=== PATIENT | male | born 1965 | race Caucasian/White ===

== ENCOUNTER 2020-09-21 18:19 | Emergency (ER) | payer OTHER ==
[2020-09-21] MEDS ORDERED: Metoclopramide 10 MG/2 ML SDV IVPUSH ONE (19:05)
[2020-09-21] MEDS ORDERED: HYDROmorphone 0.5 MG/0.5 ML Syringe IVPUSH ONE ×3 (19:05→23:17)
[2020-09-21] MEDS ORDERED: Sodium Chloride 0.9% 10 ML Syringe FLUSH ONE (19:16)
--- NOTE | 2020-09-21 19:18 | EDM.PDOC ---
ED HPI GENERAL MEDICAL PROBLEM - General Chief Complaint: Gastrointestinal Problem Stated Complaint: MED[facility] Time Seen by Provider: 09/21/20 19:05 Source of Information: Reports: Patient, EMS. Denies: Old Records, RN History Limitations: Reports: No Limitations - History of Present Illness INITIAL COMMENTS - FREE TEXT/NARRATIVE: 55 yo single male presents via EMS from his new home in [place] for SOB with recurrent vomiting for over a week. Has had chills, but is not aware of fever. Has surgery at the [facility] in the [facility] 3 weeks ago for a bleeding ulcer. Has had blood in his stools lately, but not in his emesis. Had a recent DVT and was on anticoagulants for that. Not able to keep any of his meds down for at least a week. Lives alone. Was living in the [facility] until recently. Has L sided abdominal pain worse with deep breathing. Is normally not on oxygen at home. Onset: Gradual Onset Date: 09/14/20 Duration: Day(s): (7+), Getting Worse Location: Reports: Chest, Abdomen Quality: Reports: Sharp Severity: Moderate Improves with: Reports: Rest (and shallow breathing) Worsens with: Reports: Breathing (deep) Context: Reports: Other (See HPI) Associated Symptoms: Reports: Chest Pain, Fever/Chills (no fever documented), Nausea/Vomiting, Shortness of Breath. 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) left sided chest Pain Score (Numeric/FACES): 8 left arm Pain Score (Numeric/FACES): 5 left upper abd Pain Score (Numeric/FACES): 9 - Related Data Allergies Allergy/AdvReac Type Severity Reaction Status Date / Time No Known Allergies Allergy Verified 09/21/20 18:27 Home Meds: Home Meds Divalproex Sodium [Depakote] 4 tab PO BEDTIME 09/21/20 [History] Pregabalin [Lyrica] 150 mg PO BID 09/21/20 [History] Warfarin [Coumadin] 5 mg PO ASDIRECTED 09/21/20 [History] risperiDONE [Risperidone] 1 mg PO BEDTIME 09/21/20 [History] Past Medical History Cardiovascular History: Reports: Blood Clots/VTE/DVT Gastrointestinal History: Reports: Chronic Diarrhea, Other (See Below) Other Gastrointestinal History: bleeding ulcer Endocrine/Metabolic History: Reports: Obesity/BMI 30+ Hematologic History: Reports: Anticoagulation Therapy, Blood Transfusion(s) - Past Surgical History Head Surgeries/Procedures: Reports: None GI Surgical History: Reports: Hernia Repair/Other, Other (See Below) Other GI Surgeries/Procedures: repair of bleeding stomach ulcer Endocrine Surgical History: Reports: None Dermatological Surgical History: Reports: None Social & Family History - Tobacco Use Tobacco Use Status *Q: Current Every Day Tobacco User Years of Tobacco use: 30 Packs/Tins Daily: 1 Used Tobacco, but Quit: No Second Hand Smoke Exposure: No - Caffeine Use Caffeine Use: Reports: None - Alcohol Use Days Per Week of Alcohol Use: 3 Number of Drinks Per Day: 2 Total Drinks Per Week: 6 - Recreational Drug Use Recreational Drug Use: No ED ROS GENERAL - Review of Systems Review Of Systems: See Below Constitutional: Reports: No Symptoms HEENT: Reports: No Symptoms Respiratory: Reports: Shortness of Breath, Pleuritic Chest Pain. Denies: Wheezing, Cough, Sputum, Hemoptysis Cardiovascular: Reports: Dyspnea on Exertion Endocrine: Reports: No Symptoms GI/Abdominal: Reports: Abdominal Pain (L sided), Nausea, Vomiting : Reports: No Symptoms Musculoskeletal: Reports: No Symptoms Skin: Reports: No Symptoms Neurological: Reports: No Symptoms ED EXAM, GI/ABD - Physical Exam Exam: See Below Exam Limited By: No Limitations General Appearance: Alert, WD/WN, Mild Distress, Obese, Other (mild cyanosis) Eyes: Bilateral: Normal Appearance Ears: Normal External Exam, Normal Canal, Hearing Grossly Normal, Normal TMs Nose: Normal Inspection, No Blood Throat/Mouth: Normal Inspection, Normal Lips, Normal Oropharynx, Normal Voice, No Airway Compromise Head: Atraumatic, Normocephalic Neck: Normal Inspection Respiratory/Chest: No Respiratory Distress, Lungs Clear, Normal Breath Sounds, No Accessory Muscle Use Cardiovascular: Regular Rate, Rhythm, No Edema GI/Abdominal Exam: Normal Bowel Sounds, Soft, Non-Tender, No Distention Back Exam: No: CVA Tenderness (R), CVA Tenderness (L) Extremities: Normal Inspection, Normal Range of Motion, Non-Tender, No Pedal Edema Neurological: Alert, Oriented, CN II-XII Intact, Normal Cognition, No Motor/Sensory Deficits Psychiatric: Normal Affect, Normal Mood Skin Exam: Warm, Dry, Intact, No Rash, Cyanosis #1 Interpretation EKG Date: 09/21/20 Time: 19:05 Rhythm: NSR Rate (Beats/Min): 89 Ald[place]: Normal P-Wave: Present QRS: Normal ST-T: Depressed (slight depression ant/lateral leads) QT: Normal Comparison: NA - No Prior EKG #2 Interpretation EKG Date: 09/21/20 Course - Vital Signs Text/Narrative:: called [facility], recommends sending to [facility] for a higher level of care. [facility] accepted @ [id number] Last Recorded V/S: Last Vital Signs Temp 36.2 C 09/21/20 22:49 Pulse 94 09/21/20 22:49 Resp 18 09/21/20 22:49 BP 116/72 09/21/20 22:49 Pulse Ox 91 L 09/21/20 22:49 - Orders/Labs/Meds Orders: Active Orders 24 hr Category Date Time Status Cardiac Monitoring [RC] .As Directed Care 09/21/20 19:04 Active EKG Documentation Completion [RC] ASDIRECTED Care 09/21/20 19:07 Active EKG Documentation Completion [RC] ASDIRECTED Care 09/21/20 20:27 Active Oxygen Therapy Adult [Oxygen Therapy, ED] [RC] Care 09/21/20 19:04 Active ASDIRECTED INR,PT,PROTHROMBIN TIME [COAG] Stat Lab 09/21/20 22:40 Received LACTIC ACID [CHEM] Stat Lab 09/21/20 22:40 Received Iopamidol [Isovue-370 (76%)] Med 09/21/20 19:30 Active 100 ml IV . DIRECTED NS + KCl 20mEq/L [Normal Saline with 20 mEq KCl] 1,000 Med 09/21/20 20:15 Active ml IV ASDIRECTED Sodium Chloride 0.9% [Normal Saline] 100 ml Med 09/21/20 19:30 Active IV ASDIRECTED Sodium Chloride 0.9% [Normal Saline] 85 ml Med 09/21/20 21:00 Active IV ASDIRECTED EKG 12 Lead [EK] Routine Ther 09/21/20 19:06 Ordered EKG 12 Lead [EK] Routine Ther 09/21/20 20:26 Ordered Medication Orders Sodium Chloride (Normal Saline) 100 mls @ 3 mls/sec IV ASDIRECTED [facility] Last Admin: 09/21/20 21:24 Dose: 3 mls/sec Documented by: Admin: 09/21/20 20:15 Dose: 3 mls/sec Documented by: LINA Potassium Chloride/Sodium Chloride (Normal Saline With 20 Meq Kcl) 1,000 mls @ 500 mls/hr IV ASDIRECTED [facility] Last Admin: 09/21/20 20:11 Dose: 500 mls/hr Documented by: RESHMA Sodium Chloride (Normal Saline) 85 mls @ 3 mls/sec IV ASDIRECTED [facility] Last Admin: 09/21/20 21:24 Dose: 3 mls/sec Documented by: Admin: 09/21/20 21:18 Dose: 3 mls/sec Documented by: LINA Iopamidol (Iopamidol 755 Mg/Ml 100 Ml Bottle) 100 ml IV . DIRECTED [facility] Last Admin: 09/21/20 21:24 Dose: 100 ml Documented by: Admin: 09/21/20 20:15 Dose: 100 ml Documented by: LINA Labs: Laboratory Tests 09/21/20 09/21/20 09/21/20 Range/Units 19:35 19:35 19:35 WBC 3.9 L (4.5-11.0) K/uL RBC 2.94 L (4.30-5.90) M/uL Hgb 10.6 L (12.0-15.0) g/dL Hct 31.2 L (40.0-54.0) % MCV 106 H (80-98) fL MCH 36 H (27-31) pg MCHC 34 (32-36) % Plt Count 307 (150-400) K/uL Sodium 137 L (140-148) mmol/L Potassium 2.0 L* (3.6-5.2) mmol/L Chloride 93 L (100-108) mmol/L Carbon Dioxide 38 H (21-32) mmol/L Anion Gap 8.0 (5.0-14.0) mmol/L BUN 13 (7-18) mg/dL Creatinine 1.1 (0.8-1.3) mg/dL Est Cr Clr Drug Dosing 95.63 mL/min Estimated GFR (MDRD) > 60 (>60) Glucose 95 (74-106) mg/dL Calcium 7.2 L (8.5-10.1) mg/dL Magnesium 1.4 L (1.8-2.4) mg/dL Total Bilirubin 1.4 H (0.2-1.0) mg/dL AST 56 H (15-37) U/L ALT 39 (12-78) U/L Alkaline Phosphatase 177 H (46-116) U/L Troponin I < 0.017 (0.000-0.056) ng/mL C-Reactive Protein (0.0-0.3) mg/dL Total Protein 5.7 L (6.4-8.2) g/dL Albumin 2.3 L (3.4-5.0) g/dL Globulin 3.4 (2.3-3.5) g/dL Albumin/Globulin Ratio 0.7 L (1.2-2.2) Urine Color (YELLOW) Urine Appearance (CLEAR) Urine pH (5.0-8.0) Ur Specific [place] (1.008-1.030) Urine Protein (NEGATIVE) mg/dL Urine Glucose (UA) (NEGATIVE) mg/dL Urine Ketones (NEGATIVE) mg/dL Urine Occult Blood (NEGATIVE) Urine Nitrite (NEGATIVE) Urine Bilirubin (NEGATIVE) Urine Urobilinogen (0.2-1.0) EU/dL Ur Leukocyte Esterase (NEGATIVE) Urine RBC (0-5) Urine WBC (0-5) Ur Epithelial Cells Amorphous Sediment Urine Bacteria Urine Mucus SARS-CoV-2 RNA (MICHAEL) (NEGATIVE) 09/21/20 09/21/20 09/21/20 Range/Units 19:35 20:00 21:42 WBC (4.5-11.0) K/uL RBC (4.30-5.90) M/uL Hgb (12.0-15.0) g/dL Hct (40.0-54.0) % MCV (80-98) fL MCH (27-31) pg MCHC (32-36) % Plt Count (150-400) K/uL Sodium (140-148) mmol/L Potassium (3.6-5.2) mmol/L Chloride (100-108) mmol/L Carbon Dioxide (21-32) mmol/L Anion Gap (5.0-14.0) mmol/L BUN (7-18) mg/dL Creatinine (0.8-1.3) mg/dL Est Cr Clr Drug Dosing mL/min Estimated GFR (MDRD) (>60) Glucose (74-106) mg/dL Calcium (8.5-10.1) mg/dL Magnesium (1.8-2.4) mg/dL Total Bilirubin (0.2-1.0) mg/dL AST (15-37) U/L ALT (12-78) U/L Alkaline Phosphatase (46-116) U/L Troponin I < 0.017 (0.000-0.056) ng/mL C-Reactive Protein 2.05 H (0.0-0.3) mg/dL Total Protein (6.4-8.2) g/dL Albumin (3.4-5.0) g/dL Globulin (2.3-3.5) g/dL Albumin/Globulin Ratio (1.2-2.2) Urine Color (YELLOW) Urine Appearance (CLEAR) Urine pH (5.0-8.0) Ur Specific [place] (1.008-1.030) Urine Protein (NEGATIVE) mg/dL Urine Glucose (UA) (NEGATIVE) mg/dL Urine Ketones (NEGATIVE) mg/dL Urine Occult Blood (NEGATIVE) Urine Nitrite (NEGATIVE) Urine Bilirubin (NEGATIVE) Urine Urobilinogen (0.2-1.0) EU/dL Ur Leukocyte Esterase (NEGATIVE) Urine RBC (0-5) Urine WBC (0-5) Ur Epithelial Cells Amorphous Sediment Urine Bacteria Urine Mucus SARS-CoV-2 RNA (MICHAEL) Negative (NEGATIVE) 09/21/20 Range/Units 22:03 WBC (4.5-11.0) K/uL RBC (4.30-5.90) M/uL Hgb (12.0-15.0) g/dL Hct (40.0-54.0) % MCV (80-98) fL MCH (27-31) pg MCHC (32-36) % Plt Count (150-400) K/uL Sodium (140-148) mmol/L Potassium (3.6-5.2) mmol/L Chloride (100-108) mmol/L Carbon Dioxide (21-32) mmol/L Anion Gap (5.0-14.0) mmol/L BUN (7-18) mg/dL Creatinine (0.8-1.3) mg/dL Est Cr Clr Drug Dosing mL/min Estimated GFR (MDRD) (>60) Glucose (74-106) mg/dL Calcium (8.5-10.1) mg/dL Magnesium (1.8-2.4) mg/dL Total Bilirubin (0.2-1.0) mg/dL AST (15-37) U/L ALT (12-78) U/L Alkaline Phosphatase (46-116) U/L Troponin I (0.000-0.056) ng/mL C-Reactive Protein (0.0-0.3) mg/dL Total Protein (6.4-8.2) g/dL Albumin (3.4-5.0) g/dL Globulin (2.3-3.5) g/dL Albumin/Globulin Ratio (1.2-2.2) Urine Color Yellow (YELLOW) Urine Appearance Clear (CLEAR) Urine pH 6.0 (5.0-8.0) Ur Specific [place] <= 1.005 L (1.008-1.030) Urine Protein Negative (NEGATIVE) mg/dL Urine Glucose (UA) Negative (NEGATIVE) mg/dL Urine Ketones Negative (NEGATIVE) mg/dL Urine Occult Blood Negative (NEGATIVE) Urine Nitrite Negative (NEGATIVE) Urine Bilirubin Small H (NEGATIVE) Urine Urobilinogen 4.0 H (0.2-1.0) EU/dL Ur Leukocyte Esterase Negative (NEGATIVE) Urine RBC 0-5 (0-5) Urine WBC 0-5 (0-5) Ur Epithelial Cells Rare Amorphous Sediment Not seen Urine Bacteria Rare Urine Mucus Not seen SARS-CoV-2 RNA (MICHAEL) (NEGATIVE) Meds: Medications Generic Name Dose Route Start Last Admin Trade Name Mylene PRN Reason Stop Dose Admin Sodium Chloride 100 mls @ 3 mls/sec 09/21/20 19:30 09/21/20 21:24 Normal Saline IV 3 mls/sec ASDIRECTED VELASQUEZ Administration Potassium Chloride/Sodium Chloride 1,000 mls @ 500 mls/hr 09/21/20 20:15 09/21/20 20:11 Normal Saline With 20 Meq Kcl IV 500 mls/hr ASDIRECTED VELASQUEZ Administration Sodium Chloride 85 mls @ 3 mls/sec 09/21/20 21:00 09/21/20 21:24 Normal Saline IV 3 mls/sec ASDIRECTED VELASQUEZ Administration Iopamidol 100 ml 09/21/20 19:30 09/21/20 21:24 Iopamidol 755 Mg/Ml 100 Ml Bottle IV 100 ml . DIRECTED VELASQUEZ Administration Discontinued Medications Generic Name Dose Route Start Last Admin Trade Name Mylene PRN Reason Stop Dose Admin Hydromorphone HCl 0.5 mg 09/21/20 19:05 09/21/20 19:13 Hydromorphone 0.5 Mg/0.5 Ml Syringe IVPUSH 09/21/20 19:06 0.5 mg ONETIME ONE Administration Hydromorphone HCl 1 mg 09/21/20 19:31 09/21/20 19:35 Hydromorphone 1 Mg/Ml Syringe IVPUSH 09/21/20 19:32 1 mg ONETIME ONE Administration Hydromorphone HCl 0.5 mg 09/21/20 20:31 09/21/20 20:44 Hydromorphone 0.5 Mg/0.5 Ml Syringe IVPUSH 09/21/20 20:32 0.5 mg ONETIME ONE Administration Potassium Chloride 20 meq/ 100 mls @ 50 mls/hr 09/21/20 20:00 09/21/20 20:36 Premix IV 09/21/20 21:59 50 mls/hr ONETIME ONE Administration Magnesium Sulfate 2 gm/ Premix 50 mls @ 25 mls/hr 09/21/20 20:43 09/21/20 20:56 IV 09/21/20 22:42 25 mls/hr ONETIME ONE Administration Iopamidol 150 ml 09/21/20 21:00 09/21/20 21:18 Iopamidol 612 Mg/Ml 150 Ml Bottle IV 150 ml . DIRECTED VELASQUEZ Administration Lidocaine HCl 2 ml 09/21/20 20:24 09/21/20 20:38 Lidocaine 1% 5 Ml Sdv INJECT 09/21/20 20:25 2 ml ONETIME ONE Administration Metoclopramide HCl 5 mg 09/21/20 19:05 09/21/20 19:13 Metoclopramide 10 Mg/2 Ml Sdv IVPUSH 09/21/20 19:06 5 mg ONETIME ONE Administration Sodium Chloride 10 ml 09/21/20 19:16 09/21/20 20:15 Sodium Chloride 0.9% 10 Ml Syringe FLUSH 09/21/20 19:17 10 ml ONETIME ONE Administration Sodium Chloride 10 ml 09/21/20 20:57 09/21/20 21:24 Sodium Chloride 0.9% 10 Ml Syringe FLUSH 09/21/20 20:58 10 ml ONETIME ONE Administration - Radiology Interpretation Free Text/Narrative:: angio Chest-IMPRESSION: 1. No acute pulmonary emboli. 2. Minimal infiltrate within the posterior right upper lobe of the lung may indicate a subtle pneumonitis. 3. Small amount of free air within the upper abdomen as well as a small amount of fluid about the spleen. Given that the surgery was reportedly 3 weeks ago, this is abnormal and imaging of the abdomen and pelvis with CT may be helpful to exclude additional perforation/leak. 4. Absent gallbladder. Gastric bypass surgery. Hepatic fatty infiltration. 5. These findings were discussed briefly with Dr. Paz Castro at 8:50 p.m. Please note that all CT scans at this facility use dose modulation, iterative reconstruction, and/or weight-based dosing when appropriate to reduce radiation dose to as low as reasonably achievable. Dictated by Nathen Wang MD @ 09/21/2020 8:53:36 PM single view abd-? ascites, no specific findings, IVC filter CT abd/pelvis with contrast- IMPRESSION: 1. Possible mild ileus type pattern involving the colon and potentially the small bowel. However this may simply reflect some colonic constipation or decreased motility. There is no ruben obstruction. 2. No abscess. No abdominal wound dehiscence. No free air. 3. Postsurgical changes as described. 4. Indeterminate subcentimeter nodule right lung base laterally. Please note that all CT scans at this facility use dose modulation, iterative reconstruction, and/or weight-based dosing when appropriate to reduce radiation dose to as low as reasonably achievable. Dictated by Nathen Wang MD @ 09/21/2020 1:53:08 PM (Electronic Signature) CT Results Date: 09/21/20 Departure - Departure Time of Disposition: 23:30 Disposition: DC/Tfer to Acute Hospital 02 Clinical Impression: Hypokalemia, Hypomagnesemia, Free intraperitoneal air GI bleeding Qualifiers: GI bleed type/associated pathology: unspecified gastrointestinal hemorrhage type Qualified Code(s): K92.2 - Gastrointestinal hemorrhage, unspecified Anemia Qualifiers: Anemia type: iron deficiency Iron deficiency anemia type: chronic blood loss Qualified Code(s): D50.0 - Iron deficiency anemia secondary to blood loss (chronic) Abdominal pain Qualifiers: Abdominal location: left upper quadrant Qualified Code(s): R10.12 - Left upper quadrant pain - Discharge Information *PRESCRIPTION DRUG MONITORING PROGRAM REVIEWED*: Not Applicable *COPY OF PRESCRIPTION DRUG MONITORING REPORT IN PATIENT LUIS FERNANDO: Not Applicable Referrals: PCP,None [Primary Care Provider] - Forms: ED Department Discharge Sepsis Event Note (ED) - Evaluation Sepsis Screening Result: No Definite Risk - Focused Exam Vital Signs: Vital Signs Temp Pulse Resp BP Pulse Ox Pulse Ox 09/21/20 22:49 36.2 C 94 18 116/72 91 L 09/21/20 22:21 100 21 H 111/69 92 L 09/21/20 21:05 98 20 129/69 93 L 09/21/20 20:49 96 19 141/72 H 93 L 09/21/20 20:23 89 20 143/75 H 91 L 09/21/20 20:00 94 16 143/74 H 94 L 09/21/20 19:16 83 20 117/71 09/21/20 19:04 94 L 09/21/20 18:40 82 13 124/65 89 L 09/21/20 18:28 36.6 C 88 19 111/59 L 90 L 09/21/20 18:22 90 L 09/21/20 18:21 36.6 C 88 19 111/59 L 91 L - My Orders Last 24 Hours: My Active Orders 09/21/20 19:04 Cardiac Monitoring [RC] .As Directed Oxygen Therapy Adult [Oxygen Therapy, ED] [RC] ASDIRECTED 09/21/20 19:06 EKG 12 Lead [EK] Routine 09/21/20 19:07 EKG Documentation Completion [RC] ASDIRECTED 09/21/20 19:30 Iopamidol [Isovue-370 (76%)] 100 ml IV . DIRECTED Sodium Chloride 0.9% [Normal Saline] 100 ml IV ASDIRECTED 09/21/20 20:15 NS + KCl 20mEq/L [Normal Saline with 20 mEq KCl] 1,000 ml IV ASDIRECTED 09/21/20 20:26 EKG 12 Lead [EK] Routine 09/21/20 20:27 EKG Documentation Completion [RC] ASDIRECTED 09/21/20 21:00 Sodium Chloride 0.9% [Normal Saline] 85 ml IV ASDIRECTED 09/21/20 22:40 INR,PT,PROTHROMBIN TIME [COAG] Stat LACTIC ACID [CHEM] Stat - Assessment/Plan Last 24 Hours: My Active Orders 09/21/20 19:04 Cardiac Monitoring [RC] .As Directed Oxygen Therapy Adult [Oxygen Therapy, ED] [RC] ASDIRECTED 09/21/20 19:06 EKG 12 Lead [EK] Routine 09/21/20 19:07 EKG Documentation Completion [RC] ASDIRECTED 09/21/20 19:30 Iopamidol [Isovue-370 (76%)] 100 ml IV . DIRECTED Sodium Chloride 0.9% [Normal Saline] 100 ml IV ASDIRECTED 09/21/20 20:15 NS + KCl 20mEq/L [Normal Saline with 20 mEq KCl] 1,000 ml IV ASDIRECTED 09/21/20 20:26 EKG 12 Lead [EK] Routine 09/21/20 20:27 EKG Documentation Completion [RC] ASDIRECTED 09/21/20 21:00 Sodium Chloride 0.9% [Normal Saline] 85 ml IV ASDIRECTED 09/21/20 22:40 INR,PT,PROTHROMBIN TIME [COAG] Stat LACTIC ACID [CHEM] Stat
[2020-09-21] MEDS ORDERED: HYDROmorphone 1 MG/ML Syringe IVPUSH ONE (19:31)
[2020-09-21] MEDS ORDERED: Potassium Chloride 20 MEQ in Premix Bag 1 BAG IV ONE ×2 (20:00→23:17)
[2020-09-21] MEDS: Sodium Chloride 0.9% 100 ML IV SCH ×2 (20:15→21:24)
[2020-09-21] MEDS: Iopamidol 755 Mg/ML 100 ML Bottle IV SCH ×2 (20:15→21:24)
[2020-09-21] MEDS ORDERED: NS + KCl 20mEq/L 1,000 ML IV SCH (20:15)
--- NOTE | 2020-09-21 20:38 | CRLCR ---
For Patients: As a result of the Cures Act, medical imaging exams and procedure reports are released immediately into your electronic medical record. You may view this report before your referring provider. If you have questions, please contact your health care provider. INDICATION: Left-sided abdominal pain. Shortness of breath. History of DVT. Recent surgery not otherwise specified. TECHNIQUE: Supine portable view of the abdomen. FINDINGS: IVC filter just to the right of L2-L3. Contrast in the genitourinary tract from today`s contrast-enhanced study. Surgical clips in the right upper quadrant. Nonspecific bowel gas pattern without obstruction. IMPRESSION: Nonspecific bowel gas pattern. IVC filter. Contrast in the genitourinary tract. Dictated by Nathen Wang MD @ 09/21/2020 8:36:[address] Nathen Wang @ Sep 21 2020 8:36PM
[2020-09-21] MEDS ORDERED: Magnesium Sulfate/Water 2 GM in Premix Bag 1 BAG IV ONE (20:43)
--- NOTE | 2020-09-21 20:55 | CRLCT ---
For Patients: As a result of the 21st Century Cures Act, medical imaging exams and procedure reports are released immediately into your electronic medical record. You may view this report before your referring provider. If you have questions, please contact your health care provider. INDICATION: Shortness of breath. Recent history of deep venous thrombosis. Surgery 3 weeks ago not otherwise specified. Possible surgery for a perforated ulcer. TECHNIQUE: Contrast-enhanced CT angiogram of the chest. FINDINGS: Adequate opacification of the pulmonary arterial tree. No filling defects identified to indicate acute pulmonary emboli. Partly calcified left hilar lymph node, image 59 series 4. The thoracic aorta is of normal caliber. Trace pleural thickening at the lung bases. No pericardial effusion. Faint ground-glass infiltrate along the anterior margin of the right major fissure within the posterior right upper lobe of the lung nonspecific image 38 series 5. Pleural thickening left major fissure or less likely minimal fluid within the left major fissure. There is a small amount of debris within the proximal right mainstem bronchus, image 52 series 4. Scattered small amounts of free air are identified within the nondependent upper abdomen. This may be postsurgical in nature. However reportedly the surgery was 3 weeks ago and therefore this free air and fluid on the spleen are likely abnormal. Consider a CT of the abdomen and pelvis to assess for perforation or ulcer disease. The gallbladder is surgically absent and there are postsurgical changes from gastric bypass surgery. There is a small amount of fluid about the spleen. Normal adrenal glands. The included upper kidneys are within normal limits. An IVC filter identified on today`s plain radiograph is not included on this CT. IMPRESSION: 1. No acute pulmonary emboli. 2. Minimal infiltrate within the posterior right upper lobe of the lung may indicate a subtle pneumonitis. 3. Small amount of free air within the upper abdomen as well as a small amount of fluid about the spleen. Given that the surgery was reportedly 3 weeks ago, this is abnormal and imaging of the abdomen and pelvis with CT may be helpful to exclude additional perforation/leak. 4. Absent gallbladder. Gastric bypass surgery. Hepatic fatty infiltration. 5. These findings were discussed briefly with Dr. Paz Castro at 8:50 p.m. Please note that all CT scans at this facility use dose modulation, iterative reconstruction, and/or weight-based dosing when appropriate to reduce radiation dose to as low as reasonably achievable. Dictated by Nathen Wang MD @ 09/21/2020 8:53:[address] Nathen Wang @ Sep 21 2020 8:53PM
[2020-09-21] MEDS ORDERED: Iopamidol 612 MG/ML 150 ML Bottle IV SCH (21:00)
[2020-09-21] MEDS: Sodium Chloride 0.9% 10 ML Syringe FLUSH ONE ×2 (21:18→21:24)
--- NOTE | 2020-09-21 22:39 | CRLCT ---
For Patients: As a result of the 21st Century Cures Act, medical imaging exams and procedure reports are released immediately into your electronic medical record. You may view this report before your referring provider. If you have questions, please contact your health care provider. INDICATION: Abdominal pain. History of perforated ulcer with surgery reportedly 3 weeks ago. COMPARISON: CT pulmonary angiogram from earlier this evening. TECHNIQUE: CT examination of the abdomen and pelvis was performed with the uneventful intravenous administration of 150 cc of Isovue while 3 mm thick axial sections were obtained from the lung bases through the pubic symphysis. Oral contrast was not administered. Please note that all CT scans at this facility use dose modulation, iterative reconstruction, and/or weight-based dosing when appropriate to reduce radiation dose to as low as reasonably achievable. FINDINGS: As seen on the preceding CT pulmonary angiogram, there is a moderate amount of free air in the abdomen, along with a mild amount of free fluid in the left upper quadrant adjacent to the spleen. There is a tiny amount of free fluid in the pelvis. There is extraluminal gas located along the medial edge of the gastrojejunostomy, on axial image 32 series 2, suggesting that there is a leak at the anastomosis. There is a small fluid collection measuring 3.6 x 2.0 centimeters along the anterior margin of the anastomosis suggests a small abscess, best seen on axial image 35 series 2. There are changes of gastric bypass surgery with widely patent gastrojejunostomy and patent small bowel anastomosis in the left upper quadrant. In the abdomen, the liver is low in density, representing fatty infiltration. There is no sign of mass. The liver is moderately enlarged, measuring 23.4 centimeters in length. The spleen, pancreas and adrenals are normal in appearance. The kidneys are normal in appearance. Clips are again seen in the gall bladder fossa from cholecystectomy. There is no sign of biliary ductal dilatation. The abdominal aorta is normal in caliber with no sign of dilatation. An IVC filter is in satisfactory position. There is no sign of retroperitoneal mass or adenopathy. The distal stomach, the rest of the loops of small bowel, and colon in the abdomen are normal in appearance. In the pelvis, the appendix is nonvisualized, but there is no sign of an inflammatory process in the area of the appendix. The loops of small bowel and colon in the pelvis are normal in appearance. The prostate is normal in appearance. The urinary bladder is normal in appearance. There is no sign of pelvic or inguinal mass or adenopathy. There are moderate-sized bilateral fat containing inguinal hernias. There is mild amount of fluid in the left inguinal hernia. There is a small amount of fluid in the inferior left major fissure. The lung bases are otherwise clear. The osseous structures are normal in appearance for the patient`s age. I discussed the findings with nurse practitioner Milena at 2235 hours on 09/21/2020. IMPRESSION: Moderate amount of free air and mild amount of free fluid in the left upper quadrant, consistent with bowel perforation, given that the patient`s surgery was 3 weeks ago. Small amount of extraluminal air seen medial to the gastrojejunostomy, suggesting leak at the anastomosis. Small fluid collection measuring 3.6 x 2.0 centimeters along the anterior margin of the anastomosis suggests a small abscess. CT of the abdomen shows changes of gastric bypass surgery with a patent gastrojejunostomy and patent small bowel anastomosis. Status post cholecystectomy with no sign of biliary ductal dilatation. Fatty infiltration of the moderately enlarged liver. Satisfactory positioning of an IVC filter. CT of the pelvis shows a tiny amount of free fluid. Moderate size fat containing bilateral inguinal hernias. Please note that all CT scans at this facility use dose modulation, iterative reconstruction, and/or weight-based dosing when appropriate to reduce radiation dose to as low as reasonably achievable. Dictated by Dewey Torres MD @ 09/21/2020 10:37:[address] Dewey Torres @ Sep 21 2020 10:37PM
[2020-09-21] MEDS ORDERED: Potassium Chloride 100 ML ONE ×2 (23:29→23:31)
== END 2020-09-22 00:32 ==
LOC: JP.ED 18:19
DX: K92.2 Gastrointestinal hemorrhage, unspecified (principal); D50.0 Iron deficiency anemia secondary to blood loss (chronic); E87.6 Hypokalemia; E83.42 Hypomagnesemia; K66.8 Other specified disorders of peritoneum; Z72.0 Tobacco use; Z20.822 Contact with and (suspected) exposure to COVID-19; Z86.718 Personal history of other venous thrombosis and embolism
CPT/HCPCS: 36415; 71275; 74018; 74177; 80053; 81001; 83605; 83735; 84484; 85027; 85610; 86140; 87635; 93005; 96365; 96366; 96368; 96375; 96376; 99285; J1170; J2765; J3475; J3480; Q9967; U0002